=== PATIENT | male | born 1945 | race Caucasian/White ===

== ENCOUNTER 2021-02-11 08:25 | Emergency (ER) | payer MEDICARE ==
--- NOTE | 2021-02-11 08:58 | EDM.PDOC ---
ED HPI GENERAL MEDICAL PROBLEM - General Chief Complaint: General Stated Complaint: MEDICAL Time Seen by Provider: 02/11/21 08:53 Source of Information: Reports: Patient, EMS, Old Records, RN History Limitations: Reports: No Limitations - History of Present Illness INITIAL COMMENTS - FREE TEXT/NARRATIVE: 75 yo male with a pHx of adrenal insufficiency received his 2nd Moderna Covid vaccine yesterday. Has felt progressively achy and weak since and today is running a fever. No self tx before arrival via EMS. Not able to stand due to weakness. Lives with his in their home. Was convinced his sx's were due to his adrenal insufficiency. IV started by EMS. Has had none of his morning meds or eaten yet today. Onset: Gradual Onset Date: 02/10/21 Duration: Day(s): (~1), Getting Worse Location: Reports: Generalized Quality: Reports: Ache (diffuse) Severity: Moderate Improves with: Reports: None Worsens with: Reports: Other (time) Context: Reports: Other (See HPI) Associated Symptoms: Reports: Fever/Chills, Weakness. 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) (none) Leg Pain Score (Numeric/FACES): 8 - Related Data Allergies Allergy/AdvReac Type Severity Reaction Status Date / Time heparin Allergy Anaphylactic Verified 02/11/21 08:36 Shock Home Meds: Home Meds Aspirin [Adult Low Dose Aspirin EC] 81 mg PO DAILY 09/11/18 [History] Cholecalciferol (Vitamin D3) [D3 Dots] 1 tab PO DAILY 09/11/18 [History] Fludrocortisone [Florinef] 0.05 mg PO DAILY 09/11/18 [History] Gabapentin [Neurontin] 300 mg PO DAILY 09/11/18 [History] Hydrocortisone 15 mg PO DAILY 09/11/18 [History] Losartan [Cozaar] 100 mg PO DAILY 09/11/18 [History] Metoprolol Succinate 50 mg PO DAILY 09/11/18 [History] allopurinoL [Zyloprim] 300 mg PO DAILY 09/11/18 [History] atorvaSTATin [Lipitor] 40 mg PO BEDTIME 09/11/18 [History] dexAMETHasone [Decadron] 1 mg IM ONETIME PRN 09/11/18 [History] Multivitamin with Minerals [Multiple Vitamin] 1 tab PO DAILY 12/27/19 [History] metFORMIN [Glucophage] 500 mg PO BID 11/23/19 [History] Hydrocortisone 10 mg PO BEDTIME 12/03/19 [History] Meclizine [Antivert] 25 mg PO TID PRN 02/11/21 [History] Sildenafil Citrate 3 - 5 tab PO ASDIRECTED PRN 02/11/21 [History] amLODIPine [Norvasc] 7.5 mg PO DAILY 02/11/21 [History] Past Medical History HEENT History: Reports: Impaired Vision Cardiovascular History: Reports: CAD, High Cholesterol, Hypertension Respiratory History: Reports: Asthma, Pneumonia, Recurrent, Sleep Apnea, Other (See Below) Other Respiratory History: 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, Diabetes, Type II Hematologic History: Reports: Blood Transfusion(s), Heparin Induced Thrombocytopenia Immunologic History: Reports: Immunosuppression Oncologic (Cancer) History: Reports: Basal Cell Carcinoma - Past Surgical History HEENT Surgical History: Reports: Adenoidectomy, Tonsillectomy, Other (See Below) Other HEENT Surgeries/Procedures: nasal reconstruction, uvulectomy, Cardiovascular Surgical History: Reports: Coronary Artery Bypass, Coronary Artery Stent, Other (See Below) Other Cardiovascular Surgeries/Procedures: quadruple bypass GI Surgical History: Reports: Cholecystectomy, Colonoscopy Social & Family History - Family History Family Medical History: No Pertinent Family History - Tobacco Use Tobacco Use Status *Q: Never Tobacco User - Caffeine Use Caffeine Use: Reports: Tea - Recreational Drug Use Recreational Drug Use: No ED ROS GENERAL - Review of Systems Review Of Systems: See Below Constitutional: Reports: Malaise, Weakness HEENT: Reports: No Symptoms Respiratory: Reports: No Symptoms Cardiovascular: Reports: Lightheadedness Endocrine: Reports: No Symptoms GI/Abdominal: Reports: No Symptoms : Reports: No Symptoms Musculoskeletal: Reports: Muscle Pain (diffuse achiness) Skin: Reports: No Symptoms Neurological: Reports: No Symptoms ED EXAM, GENERAL - Physical Exam Exam: See Below Exam Limited By: No Limitations General Appearance: Alert, WD/WN, Mild Distress Eye Exam: Bilateral Eye: Normal Inspection Ears: Normal External Exam, Normal Canal, Hearing Grossly Normal Ear Exam: Bilateral Ear: Auricle Normal, Canal Normal Nose: Normal Inspection, No Blood Throat/Mouth: Normal Inspection, Normal Lips, Normal Oropharynx, Normal Voice, No Airway Compromise Head: Atraumatic, Normocephalic Neck: Normal Inspection Respiratory/Chest: No Respiratory Distress, Lungs Clear, Normal Breath Sounds, No Accessory Muscle Use Cardiovascular: Regular Rate, Rhythm, No Edema GI/Abdominal: Normal Bowel Sounds, Soft, Non-Tender, No Distention Back Exam: Normal Inspection Extremities: Normal Inspection, Normal Range of Motion, Non-Tender, No Pedal Edema Neurological: Alert, Oriented, CN II-XII Intact, Normal Cognition, No Motor/Sensory Deficits Psychiatric: Normal Affect, Normal Mood Skin Exam: Warm, Dry, Intact, Normal Color, No Rash Course - Vital Signs Text/Narrative:: Orthostatic vitals + Last Recorded V/S: Last Vital Signs Temp 38.6 C H 02/11/21 10:07 Pulse 91 02/11/21 10:07 Resp 16 02/11/21 10:07 BP 129/66 02/11/21 10:07 Pulse Ox 95 02/11/21 10:07 Orthostatic Blood Pressure [ 79/52 Standing] Orthostatic Blood Pressure [ 123/60 Sitting] Orthostatic Blood Pressure [ 113/59 Supine] - Orders/Labs/Meds Orders: Active Orders 24 hr Category Date Time Status Orthostatic Vital Signs [RC] ASDIRECTED Care 02/11/21 08:52 Active Labs: Laboratory Tests 02/11/21 02/11/21 02/11/21 Range/Units 08:55 08:55 09:07 WBC 3.9 L (4.5-11.0) K/uL RBC 4.64 (4.30-5.90) M/uL Hgb 14.8 D (12.0-15.0) g/dL Hct 43.2 (40.0-54.0) % MCV 93 (80-98) fL MCH 32 H (27-31) pg MCHC 34 (32-36) % Plt Count 71 L (150-400) K/uL Sodium 143 (140-148) mmol/L Potassium 3.6 (3.6-5.2) mmol/L Chloride 105 (100-108) mmol/L Carbon Dioxide 24 (21-32) mmol/L Anion Gap 14.4 H (5.0-14.0) mmol/L BUN 27 H (7-18) mg/dL Creatinine 1.4 H (0.8-1.3) mg/dL Est Cr Clr Drug Dosing 48.52 mL/min Estimated GFR (MDRD) 50 L (>60) Glucose 133 H (74-106) mg/dL Lactic Acid 1.6 (0.4-2.0) mmol/L Calcium 8.9 (8.5-10.1) mg/dL Urine Color (YELLOW) Urine Appearance (CLEAR) Urine pH (5.0-8.0) Ur Specific [place] (1.008-1.030) Urine Protein (NEGATIVE) mg/dL Urine Glucose (UA) (NEGATIVE) mg/dL Urine Ketones (NEGATIVE) mg/dL Urine Occult Blood (NEGATIVE) Urine Nitrite (NEGATIVE) Urine Bilirubin (NEGATIVE) Urine Urobilinogen (0.2-1.0) EU/dL Ur Leukocyte Esterase (NEGATIVE) Urine RBC (0-5) Urine WBC (0-5) Ur Epithelial Cells Amorphous Sediment Urine Bacteria Urine Mucus 02/11/21 Range/Units 09:09 WBC (4.5-11.0) K/uL RBC (4.30-5.90) M/uL Hgb (12.0-15.0) g/dL Hct (40.0-54.0) % MCV (80-98) fL MCH (27-31) pg MCHC (32-36) % Plt Count (150-400) K/uL Sodium (140-148) mmol/L Potassium (3.6-5.2) mmol/L Chloride (100-108) mmol/L Carbon Dioxide (21-32) mmol/L Anion Gap (5.0-14.0) mmol/L BUN (7-18) mg/dL Creatinine (0.8-1.3) mg/dL Est Cr Clr Drug Dosing mL/min Estimated GFR (MDRD) (>60) Glucose (74-106) mg/dL Lactic Acid (0.4-2.0) mmol/L Calcium (8.5-10.1) mg/dL Urine Color Yellow (YELLOW) Urine Appearance Clear (CLEAR) Urine pH 5.0 (5.0-8.0) Ur Specific [place] 1.020 (1.008-1.030) Urine Protein Negative (NEGATIVE) mg/dL Urine Glucose (UA) Negative (NEGATIVE) mg/dL Urine Ketones Negative (NEGATIVE) mg/dL Urine Occult Blood Negative (NEGATIVE) Urine Nitrite Negative (NEGATIVE) Urine Bilirubin Negative (NEGATIVE) Urine Urobilinogen 0.2 (0.2-1.0) EU/dL Ur Leukocyte Esterase Negative (NEGATIVE) Urine RBC Not seen (0-5) Urine WBC Not seen (0-5) Ur Epithelial Cells Occasional Amorphous Sediment Rare Urine Bacteria Rare Urine Mucus Rare Meds: Medications Discontinued Medications Generic Name Dose Route Start Last Admin Trade Name Freq PRN Reason Stop Dose Admin Acetaminophen 1,000 mg 02/11/21 08:52 02/11/21 08:59 Acetaminophen 500 Mg Tab PO 02/11/21 08:53 1,000 mg ONETIME ONE Administration Hydrocortisone Sodium Succinate 100 mg 02/11/21 09:33 02/11/21 09:43 Hydrocortisone Sodium Succinate 100 Mg/2 Ml Sdv IVPUSH 02/11/21 09:34 100 mg ONETIME ONE Administration Lactated Ringer's 1,000 mls @ 1,000 mls/hr 02/11/21 09:23 02/11/21 09:33 Ringers, Lactated IV 02/11/21 10:22 1,000 mls/hr BOLUS ONE Administration Lactated Ringer's 1,000 mls @ 1,000 mls/hr 02/11/21 10:54 02/11/21 10:55 Ringers, Lactated IV 02/11/21 11:53 1,000 mls/hr BOLUS ONE Administration - Re-Assessments/Exams Free Text/Narrative Re-Assessment/Exam: 02/11/21 10:54 Feeling better after first liter, but still orthostatic, will give an additional liter. Free Text/Narrative Re-Assessment/Exam: 02/11/21 12:04 Able to stand independently after 2nd liter. Not light headed. Wants to go home. Departure - Departure Time of Disposition: 12:10 Disposition: Home, Self-Care 01 Condition: Fair Clinical Impression: Adrenal insufficiency Vaccine reaction Qualifiers: Encounter type: initial encounter Qualified Code(s): T50.Z95A - Adverse effect of other vaccines and biological substances, initial encounter - Discharge Information *PRESCRIPTION DRUG MONITORING PROGRAM REVIEWED*: No *COPY OF PRESCRIPTION DRUG MONITORING REPORT IN PATIENT JIM: No Referrals: Brooklyn Dickson MD [Primary Care Provider] - Forms: ED Department Discharge Additional Instructions: Hold your BP medications, amlodipine and metoprolol today. Resume all your other medications. Take acetaminophen 1000 mg every 6 hrs for a couple days. Drink ample fluids. Return or see your provider as needed. No driving today. Sepsis Event Note (ED) - Evaluation Sepsis Screening Result: No Definite Risk - Focused Exam Vital Signs: Vital Signs Temp Pulse Resp BP Pulse Ox 02/11/21 10:07 38.6 C H 91 16 129/66 95 02/11/21 09:28 101 C H 88 14 131/68 91 L 02/11/21 08:59 80 18 138/72 94 L 02/11/21 08:30 38.9 C H 84 18 160/79 H 97 - My Orders Last 24 Hours: My Active Orders 02/11/21 08:52 Orthostatic Vital Signs [RC] ASDIRECTED - Assessment/Plan Last 24 Hours: My Active Orders 02/11/21 08:52 Orthostatic Vital Signs [RC] ASDIRECTED
[2021-02-11] MEDS: Acetaminophen 500 MG Tab PO ONE (08:59)
[2021-02-11] MEDS: Lactated Ringers 1,000 ML IV ONE ×2 (09:33→10:55)
[2021-02-11] MEDS: Hydrocortisone Sodium Succinate 100 MG/2 ML SDV IVPUSH ONE (09:43)
== END 2021-02-11 13:11 | disposition home or self-care (01) ==
LOC: JP.ED 08:25
DX: R53.1 Weakness (principal); R50.9 Fever, unspecified; T50.Z95A Adverse effect of other vaccines and biological substances, initial encounter; E27.40 Unspecified adrenocortical insufficiency; I25.10 Atherosclerotic heart disease of native coronary artery without angina pectoris; E78.00 Pure hypercholesterolemia, unspecified; J45.909 Unspecified asthma, uncomplicated; K21.9 Gastro-esophageal reflux disease without esophagitis; I12.9 Hypertensive chronic kidney disease with stage 1 through stage 4 chronic kidney disease, or unspecified chronic kidney disease; N18.30 Chronic kidney disease, stage 3 unspecified; M10.9 Gout, unspecified; E11.42 Type 2 diabetes mellitus with diabetic polyneuropathy; E11.22 Type 2 diabetes mellitus with diabetic chronic kidney disease; Z79.82 Long term (current) use of aspirin; Z79.84 Long term (current) use of oral hypoglycemic drugs; Z79.899 Other long term (current) drug therapy; Z88.8 Allergy status to other drugs, medicaments and biological substances
CPT/HCPCS: 36415; 80048; 81001; 83605; 85027; 96374; 99285; A9270; J1720; J7120

== ENCOUNTER 2021-07-23 20:41 | Emergency (ER) | payer MEDICARE ==
[2021-07-23] MEDS ORDERED: Acetaminophen 500 MG Tab PO ONE (21:15)
--- NOTE | 2021-07-23 21:19 | EDM.PDOC ---
ED HPI GENERAL MEDICAL PROBLEM - General Chief Complaint: General Stated Complaint: FEVER, SOAR THROAT, COUGH Time Seen by Provider: 07/23/21 21:05 Source of Information: Reports: Patient, Old Records, RN History Limitations: Reports: No Limitations - History of Present Illness INITIAL COMMENTS - FREE TEXT/NARRATIVE: 76 yo male began yesterday morning with post-nasal drip that has progressed today to include a cough and fever. Had both of his Moderna vaccines. Has not taken anything yet for his fever. Has a pHx of adrenal insufficiency. 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) (none) Throat Pain Score (Numeric/FACES): 5 - Related Data Allergies Allergy/AdvReac Type Severity Reaction Status Date / Time heparin Allergy Anaphylactic Verified 02/11/21 08:36 Shock Home Meds: Home Meds Aspirin [Adult Low Dose Aspirin EC] 81 mg PO DAILY 09/11/18 [History] Cholecalciferol (Vitamin D3) [D3 Dots] 1 tab PO DAILY 09/11/18 [History] Fludrocortisone [Florinef] 0.05 mg PO DAILY 09/11/18 [History] Gabapentin [Neurontin] 300 mg PO DAILY 09/11/18 [History] Hydrocortisone 15 mg PO DAILY 09/11/18 [History] Losartan [Cozaar] 100 mg PO DAILY 09/11/18 [History] Metoprolol Succinate 50 mg PO DAILY 09/11/18 [History] allopurinoL [Zyloprim] 300 mg PO DAILY 09/11/18 [History] atorvaSTATin [Lipitor] 40 mg PO BEDTIME 09/11/18 [History] dexAMETHasone [Decadron] 1 mg IM ONETIME PRN 09/11/18 [History] Multivitamin with Minerals [Multiple Vitamin] 1 tab PO DAILY 11/23/19 [History] metFORMIN [Glucophage] 500 mg PO BID 11/23/19 [History] Hydrocortisone 10 mg PO BEDTIME 12/03/19 [History] Meclizine [Antivert] 25 mg PO TID PRN 02/11/21 [History] Sildenafil Citrate 3 - 5 tab PO ASDIRECTED PRN 02/11/21 [History] amLODIPine [Norvasc] 7.5 mg PO DAILY 02/11/21 [History] Past Medical History HEENT History: Reports: Impaired Vision Cardiovascular History: Reports: CAD, High Cholesterol, Hypertension Respiratory History: Reports: Asthma, Pneumonia, Recurrent, Sleep Apnea, Other (See Below) Other Respiratory History: 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, Diabetes, Type II Hematologic History: Reports: Blood Transfusion(s), Heparin Induced Thrombocytopenia Immunologic History: Reports: Immunosuppression Oncologic (Cancer) History: Reports: Basal Cell Carcinoma - Past Surgical History HEENT Surgical History: Reports: Adenoidectomy, Tonsillectomy, Other (See Below) Other HEENT Surgeries/Procedures: nasal reconstruction, uvulectomy, Cardiovascular Surgical History: Reports: Coronary Artery Bypass, Coronary Artery Stent, Other (See Below) Other Cardiovascular Surgeries/Procedures: quadruple bypass GI Surgical History: Reports: Cholecystectomy, Colonoscopy Social & Family History - Family History Family Medical History: No Pertinent Family History - Caffeine Use Caffeine Use: Reports: Tea ED ROS GENERAL - Review of Systems Review Of Systems: See Below Constitutional: Reports: Fever, Chills, Malaise HEENT: Reports: Rhinitis, Throat Pain (mild) Respiratory: Reports: Cough. Denies: Shortness of Breath, Wheezing, Sputum, Hemoptysis Cardiovascular: Reports: No Symptoms GI/Abdominal: Reports: No Symptoms : Reports: No Symptoms Musculoskeletal: Reports: No Symptoms Skin: Reports: No Symptoms Neurological: Reports: No Symptoms ED EXAM, GENERAL - Physical Exam Exam: See Below Exam Limited By: No Limitations General Appearance: Alert, WD/WN, No Apparent Distress Eye Exam: Bilateral Eye: Normal Inspection Ears: Normal External Exam, Normal Canal, Hearing Grossly Normal, Normal TMs Ear Exam: Bilateral Ear: Auricle Normal, Canal Normal, TM normal Nose: Normal Inspection, No Blood Throat/Mouth: Normal Inspection, Normal Lips, Normal Oropharynx, Normal Voice, No Airway Compromise Head: Atraumatic, Normocephalic Neck: Normal Inspection, Non-Tender Respiratory/Chest: No Respiratory Distress, Lungs Clear, Normal Breath Sounds, No Accessory Muscle Use Cardiovascular: Regular Rate, Rhythm, No Edema GI/Abdominal: Normal Bowel Sounds, Soft, Non-Tender, No Distention. No: Dist ended Extremities: Normal Inspection, Normal Range of Motion, Non-Tender, No Pedal Edema Neurological: Alert, Oriented, CN II-XII Intact, Normal Cognition, No Motor/Sensory Deficits Psychiatric: Normal Affect, Normal Mood Skin Exam: Warm, Dry, Intact, Normal Color, No Rash Course - Vital Signs Last Recorded V/S: Last Vital Signs Temp 37.1 C 07/23/21 21:15 Pulse 81 07/23/21 21:15 Resp 16 07/23/21 21:15 BP 189/87 H 07/23/21 21:15 Pulse Ox 96 07/23/21 21:15 - Orders/Labs/Meds Labs: Laboratory Tests 07/23/21 Range/Units 21:14 SARS-CoV-2 RNA ([facility]) Positive H (NEGATIVE) Meds: Medications Discontinued Medications Generic Name Dose Route Start Last Admin Trade Name Malachi PRN Reason Stop Dose Admin Acetaminophen 1,000 mg 07/23/21 21:15 07/23/21 21:21 Acetaminophen 500 Mg Tab PO 07/23/21 21:16 1,000 mg ONETIME ONE Administration Departure - Departure Time of Disposition: 22:30 Disposition: Home, Self-Care 01 Condition: Fair Clinical Impression: COVID-19 - Discharge Information *PRESCRIPTION DRUG MONITORING PROGRAM REVIEWED*: Not Applicable *COPY OF PRESCRIPTION DRUG MONITORING REPORT IN PATIENT JIM: Not Applicable Instructions: COVID-19 Frequently Asked Questions Referrals: Brooklyn Dickson MD [Primary Care Provider] - Forms: ED Department Discharge Additional Instructions: Isolate yourself as much as possible for 10 days after the onset of symptoms. Take acetaminophen for pain and fever control. Return tomorrow for the Monoclonal antibody infusion. Stay in touch with your provider regarding your condition. Take extra steroids as needed for your adrenal insufficiency. Return as needed. Sepsis Event Note (ED) - Focused Exam Vital Signs: Vital Signs Temp Pulse Resp BP Pulse Ox 07/23/21 21:15 37.1 C 81 16 189/87 H 96
== END 2021-07-23 22:40 | disposition home or self-care (01) ==
LOC: JP.ED 20:41
DX: U07.1 COVID-19 (principal); I25.10 Atherosclerotic heart disease of native coronary artery without angina pectoris; E78.00 Pure hypercholesterolemia, unspecified; E11.42 Type 2 diabetes mellitus with diabetic polyneuropathy; E11.22 Type 2 diabetes mellitus with diabetic chronic kidney disease; I12.9 Hypertensive chronic kidney disease with stage 1 through stage 4 chronic kidney disease, or unspecified chronic kidney disease; N18.9 Chronic kidney disease, unspecified; Z88.8 Allergy status to other drugs, medicaments and biological substances
CPT/HCPCS: 99283; A9270; U0002

== ENCOUNTER 2022-05-11 10:52 | Emergency (ER) | payer MEDICARE ==
[2022-05-11 12:29] LABS: ESTIMATED GFR 57 mL/min (>60)
[2022-05-11 12:33] LABS: CORONAVIRUS COVID-19 NAA POSITIVE (NEGATIVE)
== END 2022-05-11 13:30 | disposition home or self-care (01) ==
LOC: JP.ED 10:52
DX: U07.1 COVID-19 (principal); I25.10 Atherosclerotic heart disease of native coronary artery without angina pectoris; E78.00 Pure hypercholesterolemia, unspecified; E11.22 Type 2 diabetes mellitus with diabetic chronic kidney disease; E11.42 Type 2 diabetes mellitus with diabetic polyneuropathy; I12.9 Hypertensive chronic kidney disease with stage 1 through stage 4 chronic kidney disease, or unspecified chronic kidney disease; N18.30 Chronic kidney disease, stage 3 unspecified; K21.9 Gastro-esophageal reflux disease without esophagitis; M10.9 Gout, unspecified; M19.90 Unspecified osteoarthritis, unspecified site; Z88.8 Allergy status to other drugs, medicaments and biological substances; Z91.048 Other nonmedicinal substance allergy status; Z79.82 Long term (current) use of aspirin; Z79.899 Other long term (current) drug therapy
CPT/HCPCS: 0241U; 36415; 71045; 71045-26; 80053; 83605; 84145; 85025; 87040; 87081; 87880-QW; 99281; 99283-25

== ENCOUNTER 2022-06-12 18:29 | Emergency (ER) | payer MEDICARE ==
[2022-06-12] MEDS: diphenhydrAMINE 25 MG Cap PO ONE (19:30)
== END 2022-06-12 20:00 | disposition home or self-care (01) ==
LOC: JP.ED 18:29
DX: S60.561A Insect bite (nonvenomous) of right hand, initial encounter (principal); I25.10 Atherosclerotic heart disease of native coronary artery without angina pectoris; E78.00 Pure hypercholesterolemia, unspecified; E11.40 Type 2 diabetes mellitus with diabetic neuropathy, unspecified; I10 Essential (primary) hypertension; Z88.8 Allergy status to other drugs, medicaments and biological substances; Z91.048 Other nonmedicinal substance allergy status; Z79.899 Other long term (current) drug therapy; Z79.82 Long term (current) use of aspirin; Z79.84 Long term (current) use of oral hypoglycemic drugs; Z90.49 Acquired absence of other specified parts of digestive tract; W57.XXXA Bitten or stung by nonvenomous insect and other nonvenomous arthropods, initial encounter
CPT/HCPCS: 99283; A9270

== ENCOUNTER 2022-10-15 06:27 | Day surgery (SDC) | payer MEDICARE ==
[2022-10-15] MEDS ORDERED: Lactated Ringers 1,000 ML IV SCH (07:00)
[2022-10-15] MEDS ORDERED: fentaNYL 50 MCG/ML SDV ONE (07:07)
[2022-10-15] MEDS ORDERED: Propofol 200 MG/20 ML SDV ONE ×2 (07:07→08:05)
== END 2022-10-15 09:38 | disposition home or self-care (01) ==
LOC: JP.SDS 06:27
PROVIDERS: ATTEND Student in an Organized Health Care Education/Training Program
DX: Z12.11 Encounter for screening for malignant neoplasm of colon (principal); K57.30 Diverticulosis of large intestine without perforation or abscess without bleeding; I25.10 Atherosclerotic heart disease of native coronary artery without angina pectoris; N18.9 Chronic kidney disease, unspecified; Z95.5 Presence of coronary angioplasty implant and graft; Z88.8 Allergy status to other drugs, medicaments and biological substances
CPT/HCPCS: G0121; J2704; J3010; J7120

== ENCOUNTER 2023-08-31 19:07 | Emergency (ER) | payer MEDICARE ==
[2023-08-31] MEDS ORDERED: Sodium Chloride 0.9% 10 ML Syringe FLUSH PRN (20:34)
[2023-08-31] MEDS ORDERED: Acetaminophen 500 MG Tab PO ONE (20:35)
[2023-08-31 20:45] LABS: BASOPHILS ABSOLUTE AUTO 0.03 K/uL (0.00-0.10); BASOPHILS PERCENT AUTO 0.3 % (0.1-1.3); EOSINOPHILS ABSOLUTE AUTO 0.08 K/uL (0.00-0.40); EOSINOPHILS PERCENT AUTO 0.9 % (0.0-5.4); HEMATOCRIT 46.8 % (38.4-49.7); HEMOGLOBIN 16.5 g/dL (12.9-16.9); IMMATURE GRAN ABSOLUTE AUTO 0.04 K/uL (0.00-0.23); IMMATURE GRAN PERCENT AUTO 0.4 % (0.0-0.7); LYMPHOCYTES ABSOLUTE AUTO 1.17 K/uL (0.8-3.3); LYMPHOCYTES PERCENT AUTO 13.1 % (11.4-47.7); MEAN CORPUSCULAR HEMOGLOBIN 33.6 pg (31.6-35.5); MEAN CORPUSCULAR HGB CONC 35.3 g/dL (31.6-35.5); MEAN CORPUSCULAR VOLUME 95.3 fL (81.4-99.0); MONOCYTES ABSOLUTE AUTO 0.99 K/uL (0.20-0.90); MONOCYTES PERCENT AUTO 11.1 % (3.3-12.6); NEUTROPHILS PERCENT AUTO 74.2 % (40.0-78.1); PLATELET COUNT,PLT 97 K/uL (130-375); RED BLOOD CELL COUNT 4.91 M/uL (4.14-5.76); WHITE BLOOD CELL COUNT,WBC 8.9 K/uL (3.2-11.0)
[2023-08-31 21:00] LABS: APPEARANCE,URINE CLEAR (CLEAR); BILIRUBIN,URINE NEGATIVE (NEGATIVE); COLOR,URINE YELLOW (YELLOW); GLUCOSE,URINE NEGATIVE (NEGATIVE); KETONES,URINE NEGATIVE (NEGATIVE); LEUKOCYTE ESTERASE,URINE NEGATIVE (NEGATIVE); NITRITE,URINE NEGATIVE (NEGATIVE); OCCULT BLOOD,URINE NEGATIVE (NEGATIVE); PROTEIN,URINE NEGATIVE (NEGATIVE); UROBILINOGEN,URINE 0.2 EU/dL (0.2-1.0)
[2023-08-31 21:02] LABS: C-REACTIVE PROTEIN 3.11 mg/dL (0.0-0.3); CALCIUM 8.6 mg/dL (8.5-10.1); CREATININE 1.4 mg/dL (0.8-1.3); EST CRCL DRUG DOSING (CG) 46.35 mL/min; POTASSIUM,K 3.5 mmol/L (3.6-5.2)
[2023-08-31 21:03] LABS: ANION GAP 16.5 mmol/L (5.0-14.0)
[2023-08-31 21:05] LABS: AMORPHOUS SEDIMENT,URINE NOT SEEN; BACTERIA,URINE RARE; EPITHELIAL CELLS,URINE NOT SEEN; MUCUS,URINE NOT SEEN; RBC,URINE 0-5 (0-5); WBC,URINE 0-5 (0-5)
[2023-08-31 21:40] LABS: CORONAVIRUS COVID-19 NAA NEGATIVE (NEGATIVE); INFLUENZA A NAA NEGATIVE (NEGATIVE); INFLUENZA B NAA NEGATIVE (NEGATIVE); RESPIRATORY SYNCYTIAL VIR NAA NEGATIVE (NEGATIVE)
[2023-08-31] MEDS ORDERED: Amoxicillin/Clavulanate K 875-125 MG Tab PO ONE (22:08)
== END 2023-08-31 22:45 | disposition home or self-care (01) ==
LOC: JP.ED 19:07
DX: K57.32 Diverticulitis of large intestine without perforation or abscess without bleeding (principal); E27.40 Unspecified adrenocortical insufficiency; E11.9 Type 2 diabetes mellitus without complications; I25.10 Atherosclerotic heart disease of native coronary artery without angina pectoris; E78.00 Pure hypercholesterolemia, unspecified; E11.22 Type 2 diabetes mellitus with diabetic chronic kidney disease; E11.40 Type 2 diabetes mellitus with diabetic neuropathy, unspecified; I12.9 Hypertensive chronic kidney disease with stage 1 through stage 4 chronic kidney disease, or unspecified chronic kidney disease; N18.30 Chronic kidney disease, stage 3 unspecified; M19.90 Unspecified osteoarthritis, unspecified site; Z20.822 Contact with and (suspected) exposure to COVID-19; Z86.16 Personal history of COVID-19; Z79.82 Long term (current) use of aspirin; Z79.84 Long term (current) use of oral hypoglycemic drugs; Z79.899 Other long term (current) drug therapy; Z88.8 Allergy status to other drugs, medicaments and biological substances; Z91.048 Other nonmedicinal substance allergy status
CPT/HCPCS: 0241U; 36415; 74176; 80048; 81001; 83605; 85025; 86140; 99284; A9270; J3490

== ENCOUNTER 2024-09-28 08:40 | Inpatient (IN) | payer BC, MEDICARE ==
[2024-09-28 09:38] LABS: BASOPHILS ABSOLUTE AUTO 0.03 K/uL (0.00-0.10); BASOPHILS PERCENT AUTO 0.4 % (0.1-1.3); EOSINOPHILS ABSOLUTE AUTO 0.07 K/uL (0.00-0.40); EOSINOPHILS PERCENT AUTO 0.9 % (0.0-5.4); HEMATOCRIT 52.6 % (38.4-49.7); IMMATURE GRAN PERCENT AUTO 0.2 % (0.0-0.7); LYMPHOCYTES ABSOLUTE AUTO 0.82 K/uL (0.8-3.3); LYMPHOCYTES PERCENT AUTO 10.1 % (11.4-47.7); MEAN CORPUSCULAR HEMOGLOBIN 33.8 pg (31.6-35.5); MEAN CORPUSCULAR HGB CONC 35.2 g/dL (31.6-35.5); MONOCYTES ABSOLUTE AUTO 0.54 K/uL (0.20-0.90); MONOCYTES PERCENT AUTO 6.7 % (3.3-12.6); NEUTROPHILS PERCENT AUTO 81.7 % (40.0-78.1); PLATELET COUNT,PLT 80 K/uL (130-375); RED BLOOD CELL COUNT 5.48 M/uL (4.14-5.76); WHITE BLOOD CELL COUNT,WBC 8.1 K/uL (3.2-11.0)
[2024-09-28 09:40] LABS: HEMOGLOBIN 18.5 g/dL (12.9-16.9); IMMATURE GRAN ABSOLUTE AUTO 0.02 K/uL (0.00-0.23)
[2024-09-28 09:56] LABS: CORONAVIRUS COVID-19 NAA NEGATIVE (NEGATIVE); INFLUENZA A NAA NEGATIVE (NEGATIVE); INFLUENZA B NAA NEGATIVE (NEGATIVE); RESPIRATORY SYNCYTIAL VIR NAA NEGATIVE (NEGATIVE)
[2024-09-28 09:59] LABS: A/G RATIO 1.1 (1.2-2.2); ALANINE AMINOTRANSFERASE,ALT 45 U/L (12-78); ALBUMIN 4.1 g/dL (3.4-5.0); ALKALINE PHOSPHATASE 118 U/L (46-116); ASPARTATE AMNIOTRANSFERASE,AST 28 U/L (15-37); BILIRUBIN TOTAL 2.7 mg/dL (0.2-1.0); BLOOD UREA NITROGEN,BUN 23 mg/dL (7-18); CARBON DIOXIDE,CO2 30 mmol/L (21-32); CHLORIDE,CL 99 mmol/L (100-108); CREATININE 1.6 mg/dL (0.8-1.3); EST CRCL DRUG DOSING (CG) 39.92 mL/min; ESTIMATED GFR 44 mL/min (>60); GLUCOSE RANDOM 146 mg/dL (74-106); POTASSIUM,K 3.8 mmol/L (3.6-5.2); PROTEIN TOTAL,TP 7.9 g/dL (6.4-8.2); SODIUM,NA 138 mmol/L (140-148)
[2024-09-28 10:01] LABS: ANION GAP 12.8 mmol/L (5.0-14.0)
[2024-09-28] MEDS: Acetaminophen 1,000 MG in Premix Bag 1 BAG IV ONE (10:06)
[2024-09-28] MEDS: Ondansetron 4 MG/2 ML SDV IVPUSH ONE (10:06)
[2024-09-28] MEDS: Hydrocortisone Sodium Succinate 100 MG/2 ML SDV IVPUSH ONE ×2 (10:06→23:23)
[2024-09-28] MEDS: cefTRIAXone 2 GM in Sodium Chloride 0.9% 50 ML IV SCH (10:07)
[2024-09-28] MEDS: Azithromycin 500 MG in Sodium Chloride 0.9% 250 ML IV SCH (10:07)
[2024-09-28] MEDS: Sodium Chloride 0.9% 500 ML IV ONE (10:12)
[2024-09-28] MEDS: Sodium Chloride 0.9% 1,000 ML IV ONE (11:13)
[2024-09-28] MEDS ORDERED: guaiFENesin/Dextromethorphan 100-10 MG/5 ML Soln 10 ML Cup PO PRN (13:52)
[2024-09-28] MEDS ORDERED: Benzonatate 100 MG Cap PO PRN (13:52)
[2024-09-28] MEDS ORDERED: Ondansetron 4 MG/2 ML SDV IV PRN (14:31)
[2024-09-28] MEDS ORDERED: Sennosides/Docusate Sodium 50-8.6 MG Tab PO PRN (14:31)
[2024-09-28] MEDS ORDERED: Magnesium Hydroxide 400 MG/5 ML Susp 30 ML Cup PO PRN (14:31)
[2024-09-28] MEDS ORDERED: Ondansetron 4 MG Tab.DIS PO PRN (14:31)
[2024-09-28] MEDS: Calcium Carbonate/Vitamin D3 1500 MG-400 Units Tab PO SCH (16:50)
[2024-09-28] MEDS: glipiZIDE 5 MG Tab PO SCH (16:51)
[2024-09-28] MEDS: Acetaminophen 325 MG Tab PO PRN (18:02)
[2024-09-28] MEDS: Gabapentin 300 MG Cap PO SCH (21:06)
[2024-09-28] MEDS: Doxycycline 100 MG Cap PO SCH (21:06)
[2024-09-28] MEDS: Lactobacillus Rhamnosus GG (Probiotic) Cap PO SCH (21:06)
[2024-09-28] MEDS: atorvaSTATin 20 MG Tab PO SCH (21:06)
[2024-09-29 04:52] LABS: HEMATOCRIT 42.5 % (38.4-49.7); HEMOGLOBIN 14.9 g/dL (12.9-16.9); MEAN CORPUSCULAR HEMOGLOBIN 33.9 pg (31.6-35.5); MEAN CORPUSCULAR HGB CONC 35.1 g/dL (31.6-35.5); MEAN CORPUSCULAR VOLUME 96.8 fL (81.4-99.0); RED BLOOD CELL COUNT 4.39 M/uL (4.14-5.76); WHITE BLOOD CELL COUNT,WBC 6.9 K/uL (3.2-11.0)
[2024-09-29 05:15] LABS: ALANINE AMINOTRANSFERASE,ALT 32 U/L (12-78); ALBUMIN 3.1 g/dL (3.4-5.0); ALKALINE PHOSPHATASE 83 U/L (46-116); ANION GAP 9.9 mmol/L (5.0-14.0); ASPARTATE AMNIOTRANSFERASE,AST 17 U/L (15-37); BILIRUBIN TOTAL 1.4 mg/dL (0.2-1.0); BLOOD UREA NITROGEN,BUN 27 mg/dL (7-18); CALCIUM 9.3 mg/dL (8.5-10.1); CARBON DIOXIDE,CO2 27 mmol/L (21-32); CHLORIDE,CL 104 mmol/L (100-108); CREATININE 1.8 mg/dL (0.8-1.3); EST CRCL DRUG DOSING (CG) 35.49 mL/min; ESTIMATED GFR 38 mL/min (>60); GLUCOSE RANDOM 200 mg/dL (74-106); POTASSIUM,K 4.9 mmol/L (3.6-5.2); PROTEIN TOTAL,TP 6.2 g/dL (6.4-8.2); SODIUM,NA 141 mmol/L (140-148)
[2024-09-29] MEDS: Fludrocortisone 0.1 MG Tab PO SCH (07:50)
[2024-09-29] MEDS: Allopurinol 100 MG Tab PO SCH (07:51)
[2024-09-29] MEDS: Albuterol 0.083% 2.5 MG/3 ML Neb Soln NEB PRN (08:01)
[2024-09-29] MEDS: cefTRIAXone 2 GM in Water For Injection, Sterile 20 ML IV SCH (11:17)
[2024-09-30 04:49] LABS: HEMATOCRIT 39.6 % (38.4-49.7); HEMOGLOBIN 13.8 g/dL (12.9-16.9); MEAN CORPUSCULAR HEMOGLOBIN 33.4 pg (31.6-35.5); MEAN CORPUSCULAR HGB CONC 34.8 g/dL (31.6-35.5); MEAN CORPUSCULAR VOLUME 95.9 fL (81.4-99.0); RED BLOOD CELL COUNT 4.13 M/uL (4.14-5.76); WHITE BLOOD CELL COUNT,WBC 4.4 K/uL (3.2-11.0)
[2024-09-30 05:12] LABS: ANION GAP 7.7 mmol/L (5.0-14.0); CALCIUM 9.4 mg/dL (8.5-10.1); CREATININE 1.7 mg/dL (0.8-1.3); EST CRCL DRUG DOSING (CG) 37.57 mL/min; POTASSIUM,K 4.4 mmol/L (3.6-5.2)
[2024-09-30] MEDS: Cefdinir 300 MG Cap PO SCH (10:22)
== END 2024-09-30 11:40 | disposition home or self-care (01) | DRG 871 ==
LOC: JP.ED 08:40 → JP.MS 13:36
PROVIDERS: ADMIT Internal Medicine; ATTEND Internal Medicine
DX: J18.9 Pneumonia, unspecified organism (principal); A41.3 Sepsis due to Hemophilus influenzae; I10 Essential (primary) hypertension; J14 Pneumonia due to Hemophilus influenzae; J96.01 Acute respiratory failure with hypoxia; D84.9 Immunodeficiency, unspecified; E27.40 Unspecified adrenocortical insufficiency; R65.20 Severe sepsis without septic shock; E78.00 Pure hypercholesterolemia, unspecified; Z91.048 Other nonmedicinal substance allergy status; K52.9 Noninfective gastroenteritis and colitis, unspecified; M10.9 Gout, unspecified; M19.90 Unspecified osteoarthritis, unspecified site; H54.7 Unspecified visual loss; E11.42 Type 2 diabetes mellitus with diabetic polyneuropathy; E86.0 Dehydration; I25.10 Atherosclerotic heart disease of native coronary artery without angina pectoris; G47.33 Obstructive sleep apnea (adult) (pediatric); N18.31 Chronic kidney disease, stage 3a; E11.22 Type 2 diabetes mellitus with diabetic chronic kidney disease; I12.9 Hypertensive chronic kidney disease with stage 1 through stage 4 chronic kidney disease, or unspecified chronic kidney disease; Z88.8 Allergy status to other drugs, medicaments and biological substances; Z79.82 Long term (current) use of aspirin; Z79.899 Other long term (current) drug therapy; Z79.84 Long term (current) use of oral hypoglycemic drugs; Z95.1 Presence of aortocoronary bypass graft; Z87.442 Personal history of urinary calculi; Z86.16 Personal history of COVID-19; Z95.5 Presence of coronary angioplasty implant and graft; Z90.49 Acquired absence of other specified parts of digestive tract
CPT/HCPCS: 0241U; 36415; 71045; 71045-26; 80048; 80053; 82947; 83605; 85025; 85027; 87040; 87070; 87077; 87205; 93005; 93010; 94640; 94667; 96361; 96365; 96367; 96375; 97161-GP; 99223; 99232; 99238; 99285; 99285-25; A9270-GY; J0131; J0456; J0696; J1720; J2405; J3490; J7030; J7040; J7050

== ENCOUNTER 2025-05-13 10:41 | Emergency (ER) | payer MEDICARE ==
[2025-05-13] MEDS ORDERED: Sodium Chloride 0.9% 10 ML Syringe FLUSH PRN (11:04)
[2025-05-13 11:29] LABS: INR 1.1; PTT,PARTIAL THROMBOPLSTIN TIME 24.5 sec (21.8-27.3)
[2025-05-13 11:32] LABS: EST CRCL DRUG DOSING (CG) 41.91 mL/min
[2025-05-13] MEDS: Sodium Chloride 0.9% 100 ML IV SCH (11:36)
[2025-05-13] MEDS: Iopamidol 755 Mg/ML 100 ML Bottle IV SCH (11:36)
[2025-05-13] MEDS: Sodium Chloride 0.9% 10 ML Syringe FLUSH ONE (11:36)
[2025-05-13 11:40] LABS: BASOPHILS ABSOLUTE AUTO 0.03 K/uL (0.00-0.10); BASOPHILS PERCENT AUTO 0.6 % (0.1-1.3); HEMATOCRIT 45.7 % (38.4-49.7); HEMOGLOBIN 15.5 g/dL (12.9-16.9); IMMATURE GRAN PERCENT AUTO 0.4 % (0.0-0.7); LYMPHOCYTES ABSOLUTE AUTO 1.11 K/uL (0.8-3.3); LYMPHOCYTES PERCENT AUTO 22.4 % (11.4-47.7); MEAN CORPUSCULAR HGB CONC 33.9 g/dL (31.6-35.5); MEAN CORPUSCULAR VOLUME 100.2 fL (81.4-99.0); MONOCYTES ABSOLUTE AUTO 0.47 K/uL (0.20-0.90); MONOCYTES PERCENT AUTO 9.5 % (3.3-12.6); NEUTROPHILS ABSOLUTE AUTO 3.23 K/uL (1.0-7.6); NEUTROPHILS PERCENT AUTO 65.1 % (40.0-78.1); PLATELET COUNT,PLT 91 K/uL (130-375); RED BLOOD CELL COUNT 4.56 M/uL (4.14-5.76)
[2025-05-13 11:41] LABS: IMMATURE GRAN ABSOLUTE AUTO 0.02 K/uL (0.00-0.23)
[2025-05-13 12:01] LABS: CALCIUM 9.2 mg/dL (8.5-10.1); CREATININE 1.5 mg/dL (0.8-1.3); POTASSIUM,K 4.1 mmol/L (3.6-5.2); TROPONIN I HIGH SENSITIVITY 12.9 pg/mL (<=60.3)
[2025-05-13 12:01] LABS: A/G RATIO 1.1 (1.2-2.2); ALBUMIN 3.2 g/dL (3.4-5.0)
[2025-05-13 12:02] LABS: ANION GAP 9.1 mmol/L (5.0-14.0)
[2025-05-13 12:02] LABS: BILIRUBIN DIRECT 0.21 mg/dL (0.0-0.2); BILIRUBIN INDIRECT 0.79
[2025-05-13 12:21] LABS: LYME AB IgG Negative (Negative); LYME AB IgM Negative (Negative)
[2025-05-13] MEDS: Sodium Chloride 0.9% 1,000 ML IV ONE (13:27)
[2025-05-13] MEDS: Meclizine 25 MG Tab PO ONE (16:45)
[2025-05-16 16:16] LABS: ANAPLASMA PHAGOCYTOPHILUM PCR Not Detected; BABESIA MICROTI BY PCR Not Detected; BABESIA SPECIES BY PCR Not Detected; EHRLICHIA CHAFFEENSIS BY PCR Not Detected; EHRLICHIA EWINGII/CANIS BY PCR Not Detected; EHRLICHIA MURIS-LIKE BY PCR Not Detected
== END 2025-05-13 17:18 | disposition home or self-care (01) ==
LOC: JP.ED 10:41
DX: R42 Dizziness and giddiness (principal); R26.9 Unspecified abnormalities of gait and mobility; I10 Essential (primary) hypertension; E78.00 Pure hypercholesterolemia, unspecified; M19.90 Unspecified osteoarthritis, unspecified site; E11.42 Type 2 diabetes mellitus with diabetic polyneuropathy; R79.1 Abnormal coagulation profile; Z86.16 Personal history of COVID-19; Z90.49 Acquired absence of other specified parts of digestive tract; Z95.5 Presence of coronary angioplasty implant and graft; Z88.8 Allergy status to other drugs, medicaments and biological substances; Z91.048 Other nonmedicinal substance allergy status; Z79.82 Long term (current) use of aspirin; Z79.84 Long term (current) use of oral hypoglycemic drugs; Z79.899 Other long term (current) drug therapy
CPT/HCPCS: 36415; 70450; 70496; 70498; 70551; 80048; 80076; 82947; 84484; 85025; 85610; 85730; 86618; 87468; 87469; 87484; 87798; 93005; 93010; 96360; 99284; A9270; J7030; Q9967